=== PATIENT | female | born 1980 | race Caucasian/White ===

== ENCOUNTER 2017-11-10 17:28 | Emergency (ER) | payer BC ==
[~2017-11-10] VITALS: Ht 157.5 cm; Wt 88.5 kg
[~2017-11-10 17:28] MED LIST: AZIT250 PO; HYDACE10B PO; HYDACE25S PR; LEVSOD137 PO; LEVSOD25; MELO7.5 PO; OXYACE5T PO; RXPROM25 PO; Stool Softener240 MG PO
[2017-11-10] MEDS ORDERED: IBUP800 PO (17:54)
[2017-11-10] MEDS ORDERED: Cleocin HCl300 MG PO (17:54)
== END 2017-11-10 17:58 | disposition home or self-care (01) ==
LOC: ER 17:28
DX: R68.84 Jaw pain (principal); K02.9 Dental caries, unspecified; Z88.0 Allergy status to penicillin; Z88.1 Allergy status to other antibiotic agents; Z88.5 Allergy status to narcotic agent; Z79.899 Other long term (current) drug therapy; E03.9 Hypothyroidism, unspecified
CPT/HCPCS: 99283

== ENCOUNTER 2020-08-06 10:06 | Day surgery (SDC) | payer BC ==
[~2020-08-06] VITALS: Ht 157.5 cm; Wt 87.6 kg
[~2020-08-06 10:06] MED LIST changes: +Cleocin HCl300 MG PO; +DOCUSIL100 MG; +IBUP800 PO
== END 2020-08-06 12:49 | disposition home or self-care (01) ==
LOC: ORSCSDS 10:06
PROVIDERS: Internal Medicine Gastroenterology
PROC: 0DJD8ZZ Inspection of Lower Intestinal Tract, Via Natural or Artificial Opening Endoscopic (ICD-10-PCS; principal; 2020-08-06 11:30)
PROC: 0DB68ZX Excision of Stomach, Via Natural or Artificial Opening Endoscopic, Diagnostic (ICD-10-PCS; principal; 2020-08-06 11:30)
PROC: 0DBA8ZX Excision of Jejunum, Via Natural or Artificial Opening Endoscopic, Diagnostic (ICD-10-PCS; principal; 2020-08-06 11:30)
PROC: 0DB98ZX Excision of Duodenum, Via Natural or Artificial Opening Endoscopic, Diagnostic (ICD-10-PCS; principal; 2020-08-06 11:30)
DX: K90.0 Celiac disease (principal); Z12.11 Encounter for screening for malignant neoplasm of colon; Z86.010 Personal history of colon polyps; Z80.0 Family history of malignant neoplasm of digestive organs; Z85.71 Personal history of Hodgkin lymphoma; Z79.899 Other long term (current) drug therapy; Z87.891 Personal history of nicotine dependence
CPT/HCPCS: 44361; G0105; 88305; 88342; J2704; J7120

== ENCOUNTER → 2021-02-11 | Outpatient (CLI) | payer BC ==
[2021-02-12 12:11] LABS: HPV 16 Negative (Negative); HPV 18 Negative (Negative); HPV OTHER HR TYPES Negative (Negative)
== END | disposition home or self-care (01) ==
LOC: LAB 12:05 → LAB SHORT 12:05
PROVIDERS: Family Medicine
DX: Z01.419 Encounter for gynecological examination (general) (routine) without abnormal findings (principal)
CPT/HCPCS: 87624; G0123

== ENCOUNTER → 2021-12-08 | Outpatient (CLI) | payer BC | END | disposition home or self-care (01) | LOC: PLD 10:58 → LAB 10:58 → LAB SHORT 10:58 | DX: D48.5 Neoplasm of uncertain behavior of skin (principal) | CPT/HCPCS: 88305 ==

== ENCOUNTER → 2023-09-06 | Outpatient (CLI) | payer BC ==
[2023-09-12 09:12] LABS: HPV GENOTYPE 16 Not Detected; HPV GENOTYPE 18 Not Detected; HPV HIGH RISK Not Detected; HPV SOURCE Cervical/Vag
== END ==
LOC: LAB 11:33 → LAB SHORT 11:33
PROVIDERS: Obstetrics & Gynecology
DX: Z01.419 Encounter for gynecological examination (general) (routine) without abnormal findings (principal)
CPT/HCPCS: 87624; G0123

== ENCOUNTER → 2023-09-06 | Outpatient (CLI) | payer BC | END | disposition home or self-care (01) | LOC: LAB SHORT 13:28 → LAB 13:28 | DX: N92.5 Other specified irregular menstruation (principal) | CPT/HCPCS: 88305 ==

== ENCOUNTER 2023-11-15 06:08 | Day surgery (SDC) | payer BC ==
[~2023-11-15] VITALS: Ht 157.5 cm; Wt 96.1 kg
[2023-11-15] VITALS (21 sets, daily range): BP systolic 103–144; BP diastolic 62–88
[~2023-11-15 06:08] MED LIST changes: +LOSA50 PO; +NP THYROID PO
[2023-11-15] MEDS ORDERED: Lactated Ringer's 1,000 ML IV SCH ×2 (06:25→10:10)
[2023-11-15] MEDS ORDERED: Clindamycin 900mg in D5W 50ML 50 ML IV SCH (06:25)
[2023-11-15] MEDS ORDERED: Gentamicin Sulfate 100 MG in NS 100 ML IV SCH (06:28)
[2023-11-15] MEDS ORDERED: FentaNYL Citrate 50 MCG/ML 5 ML Injection ONE (06:59)
[2023-11-15] MEDS ORDERED: Rocuronium Bromide 10 MG/ML 5ML Injection IV ONE ×2 (06:59→08:33)
[2023-11-15] MEDS ORDERED: propofoL 20 ML IV ONE (06:59)
[2023-11-15] MEDS ORDERED: Bupivacaine 0.5% HCl 5 MG/ML 30MLVIAL ONE (07:10)
[2023-11-15] MEDS ORDERED: Midazolam HCl 1MG / ML 2ML Vial IV ONE (07:15)
--- NOTE | 2023-11-15 07:22 | NUR ---
6 IV ATTEMTPS. 2 ATTEMPTED BY RN KOREY SHEPHERD. 1 ATTEMPTED BY FIONA GOOD. 3 ATTEMPTED BY FIONA MONTE.
--- NOTE | 2023-11-15 07:26 | NUR ---
Pre-Op teaching done. Pt verbalizes understanding. History, Chart, Medications and Allergies reviewed before start of procedure. RING PLACED IN SPECIMEN CUP WITH PT LABEL. BELONGINGS PLACED ON GURNEY.
[2023-11-15] MEDS ORDERED: Dexamethasone Sod Phos 10 MG/ML 1ML VIAL ONE (08:14)
[2023-11-15] MEDS ORDERED: Ondansetron HCl 2 MG / ML 2ML Vial ONE (08:14)
[2023-11-15] MEDS ORDERED: Sugammadex Sodium 200 MG/2ML SDV (100 MG/ML) ONE (08:33)
[2023-11-15] MEDS ORDERED: Glycopyrrolate 0.2 MG/ML 5ML VIAL ONE (08:33)
[2023-11-15] MEDS ORDERED: Ketorolac Tromethamine 30mg Vial ONE (09:21)
[2023-11-15] MEDS ORDERED: HYDROmorphone HCl/Pf 1MG SYR IV PRN (10:05)
[2023-11-15] MEDS ORDERED: OxyCODONE HCL 5 MG TAB PO PRN (10:05)
[2023-11-15] MEDS ORDERED: DiphenhydrAMINE HCL 25 MG Cap PO PRN (10:05)
[2023-11-15] MEDS ORDERED: Metoclopramide HCl 10 MG Tab PO PRN (10:10)
[2023-11-15] MEDS ORDERED: Acetaminophen 500 MG Tab PO PRN (10:10)
[2023-11-15] MEDS ORDERED: Metoclopramide HCl 5MG / ML 2ML Vial IV PRN (10:10)
[2023-11-15] MEDS ORDERED: Ondansetron 4 MG TAB PO PRN (10:10)
[2023-11-15] MEDS ORDERED: Ondansetron HCl 2 MG / ML 2ML Vial IV PRN (10:10)
[2023-11-15] MEDS ORDERED: Naloxone HCl 0.4MG / ML 1ML Vial IV PRN (10:10)
[2023-11-15] MEDS ORDERED: Simethicone 80 MG Chew PO PRN (10:15)
[2023-11-15] MEDS ORDERED: FentaNYL Citrate 50 MCG/ML 2 ML Injection ONE (10:19)
[2023-11-15] MEDS ORDERED: Ketorolac Tromethamine 30mg Vial IV PRN (10:20)
[2023-11-15] MEDS ORDERED: HYDROmorphone HCl/Pf 1MG SYR ONE (10:40)
--- NOTE | 2023-11-15 11:34 | NUR ---
PACU TO ROOM 227 PT BROUGHT UP TO ROOM 227 FROM PACU, A/O BUT VERY SLEEPY AT THIS TIME. PT RESTING IN BED WITH FAMILY IN THE ROOM.
[2023-11-15] MEDS ORDERED: ACET500 PO (17:50)
[2023-11-15] MEDS ORDERED: OXAYDO5 M2 PO (17:51)
--- NOTE | 2023-11-15 19:55 | NUR ---
SHIFT SUMMARY POD0 LAP HYSTER, A/OX4, VSS, TOLERATING PO, PAIN MANAGED, PARK REMOVED JUST BEFORE END OF SHIFT, VAGINAL PACKING REMOVED AND NEW KATHYA PAD IN PLACE, PT EDUCATED ON WAITING FOR 3 HOURS TO MONITOR BLEEDING AND STILL NEEDING TO VOID BEFORE WE SEND HER HOME, SMALL AMT OF DRAINAGE NOTED ON HER FIRST KATHYA PAD WHICH WAS REMOVED AT 1845. PT TOLERATED PACKING REMOVAL WELL, DISCUSSED DISCHARGE PLANS WITH NOC RN AND WILL HAVE ALL DISCHARGE PAPERWORK READY. NO ACUTE EVENTS THIS SHIFT, CALL LIGHT IN REACH.
--- NOTE | 2023-11-15 20:00 | NUR ---
PT ALERT AND ORIENTED. POSTOP WITH LAP SITES WITH GLUE AND INTACT WITH SCANT BLOODY SPOTTING ONLY. LIGHT BRUISING PRESENT. SCANT VAG SPOTTING.PT DENIES NAUSEA,TOLERATING PO.PARK IS OUT.
--- NOTE | 2023-11-15 22:00 | NUR ---
DISCHARGE PT WITH SCANT SPOTTING ON KATHYA PAD,PAIN CONTROLLED,VOIDING WITHOUT DIFF,TOLERATING PO,DISCHARGED TO HOME WITH FAMILY VIA W/C.
[2023-11-16] MEDS ORDERED: Losartan Potassium 50 MG Tab PO SCH (09:00)
== END 2023-11-15 22:01 | disposition home or self-care (01) ==
LOC: ORSCMMR 06:08 → ORD 07:30 → ORSCMMR 07:30 → SURS 11:15 → ORSCMMR 22:01
PROVIDERS: Obstetrics & Gynecology
PROC: 0UT7FZZ Resection of Bilateral Fallopian Tubes, Via Natural or Artificial Opening With Percutaneous Endoscopic Assistance (ICD-10-PCS; principal; 2023-11-15 07:30)
PROC: 0UT9FZZ Resection of Uterus, Via Natural or Artificial Opening With Percutaneous Endoscopic Assistance (ICD-10-PCS; principal; 2023-11-15 07:30)
DX: N93.9 Abnormal uterine and vaginal bleeding, unspecified (principal); N92.0 Excessive and frequent menstruation with regular cycle; N80.03 Adenomyosis of the uterus; D25.9 Leiomyoma of uterus, unspecified; K66.0 Peritoneal adhesions (postprocedural) (postinfection); N83.8 Other noninflammatory disorders of ovary, fallopian tube and broad ligament; I10 Essential (primary) hypertension; E03.9 Hypothyroidism, unspecified; E66.9 Obesity, unspecified; Z68.38 Body mass index [BMI] 38.0-38.9, adult; Z79.899 Other long term (current) drug therapy
CPT/HCPCS: 86850; 86900; 86901; 88307; 94762; A9270; J1100; J1170; J1580; J1885; J2250; J2405; J2704; J3010; J7120